=== PATIENT | female | born 1955 | race Hispanic/Latino ===

== ENCOUNTER 2023-05-29 00:36 | Emergency (ER) | payer MEDICARE ==
--- OUTSIDE RECORDS SUMMARY | 2023-05-29 00:39 | XMS REPORT | Continuity of Care Document ---
:1955 Author Organization [facility] t Address [address] [place] [address] Care Team Providers Name Role Phone [email or web address] Attending Clinician Unavailable [email or web address] Admitting Clinician Unavailable Problems This patient has no known problems. Allergies, Adverse Reactions, Alerts This patient has no known allergies or adverse reactions. Medications This patient has no known medications. Procedures This patient has no known procedures. Encounters Start End Encounter Admission Attending Care Care Encounter Source Date/Time Date/Time Type Type Clinicians Facility Department ID 2023-05-08 2023-05-08 Outpatient [email or web address] PRIV PRIV [id number] [facility] 00:00:00 00:00:00 man_M [id number] Medica l Results This patient has no known results.
[2023-05-29] MEDS ORDERED: predniSONE 20 MG TAB ONE (01:21)
[2023-05-29] MEDS ORDERED: HYDROCODONE/APAP 7.5/325 MG TAB ONE (01:21)
[2023-05-29] MEDS ORDERED: FAMOTIDINE 20 MG TAB ONE (01:22)
[2023-05-29] MEDS ORDERED: VALACYCLOVIR 500 MG TAB ONE (01:23)
--- NOTE | 2023-05-29 01:31 | EDPHYS ---
Physician Documentation [facility] Name: Osvaldo Rea Age: 68 yrs Sex: Female : 1955 Arrival Date: 05/29/2023 Time: 00:36 Bed 20 Private MD: ED Physician Luis Enrique Valdivia HPI: 05/29 01:06 This 68 yrs old Female presents to ER via Unassigned with complaints of Rash. snw 01:06 The patient's rash thought to be caused by vesicular rash x 2 days in cluster at right snw chest. The patient has not experienced similar symptoms in the past. Historical: - Allergies: 01:06 No Known Allergies; jb4 - Home Meds: 01:22 atorvastatin 80 mg oral tablet [Active]; metoprolol tartrate 25 mg Oral tablet jb4 [Active]; amlodipine 5 mg tablet [Active]; - PMHx: 01:06 high cholesterol; hypertension; jb4 - Immunization history:: Adult Immunizations up to date. - Social history:: Smoking status: Patient denies any tobacco usage or history of. ROS: 01:05 Constitutional: Negative for fever, chills, and weight loss, Eyes: Negative for injury, snw pain, redness, and discharge, ENT: Negative for injury, pain, and discharge, Neck: Negative for injury, pain, and swelling, Cardiovascular: Negative for chest pain, palpitations, and edema, Respiratory: Negative for shortness of breath, cough, wheezing, and pleuritic chest pain, Abdomen/GI: Negative for abdominal pain, nausea, vomiting, diarrhea, and constipation, Back: Negative for injury and pain, : Negative for injury, bleeding, discharge, and swelling, MS/Extremity: Negative for injury and deformity, Neuro: Negative for headache, weakness, numbness, tingling, and seizure, Psych: Negative for depression, anxiety, suicide ideation, homicidal ideation, and hallucinations. 01:05 Skin: Positive for rash. Exam: 01:03 Constitutional: This is a well developed, well nourished patient who is awake, alert, snw and in no acute distress. Head/Face: Normocephalic, atraumatic. Eyes: Pupils equal round and reactive to light, extra-ocular motions intact. Lids and lashes normal. Conjunctiva and sclera are non-icteric and not injected. Cornea within normal limits. Periorbital areas with no swelling, redness, or edema. ENT: Nares patent. No nasal discharge, no septal abnormalities noted. Tympanic membranes are normal and external auditory canals are clear. Oropharynx with no redness, swelling, or masses, exudates, or evidence of obstruction, uvula midline. Mucous membranes moist. Neck: Trachea midline, no thyromegaly or masses palpated, and no cervical lymphadenopathy. Supple, full range of motion without nuchal rigidity, or vertebral point tenderness. No Meningismus. Chest/axilla: Normal chest wall appearance and motion. Nontender with no deformity. Tender Vesicles to right flank Cardiovascular: Regular rate and rhythm with a normal S1 and S2. No gallops, murmurs, or rubs. Normal PMI, no JVD. No pulse deficits. Respiratory: Lungs have equal breath sounds bilaterally, clear to auscultation and percussion. No rales, rhonchi or wheezes noted. No increased work of breathing, no retractions or nasal flaring. Abdomen/GI: Soft, non-tender, with normal bowel sounds. No distension or tympany. No guarding or rebound. No evidence of tenderness throughout. Back: No spinal tenderness. No costovertebral tenderness. Full range of motion. MS/ Extremity: Pulses equal, no cyanosis. Neurovascular intact. Full, normal range of motion. Neuro: Awake and alert, GCS 15, oriented to person, place, time, and situation. Cranial nerves II-XII grossly intact. Motor strength 5/5 in all extremities. Sensory grossly intact. Cerebellar exam normal. Normal gait. Psych: Awake, alert, with orientation to person, place and time. Behavior, mood, and affect are within normal limits. 01:03 Skin: Appearance: normal except for affected area, zoster, on the right lateral anterior chest. Vital Signs: 01:05 BP 193 / 78; Pulse 70; Resp 18; Temp 97.5; Pulse Ox 100% on R/A; jb4 01:39 BP 162 / 72; jb4 MDM: 01:01 Patient medically screened. snw 01:02 Differential diagnosis: impetigo, allergic reaction, shingles. Data reviewed: vital snw signs, nurses notes. I considered the following discharge prescriptions or medication management in the emergency department Medications were administered in the Emergency Department. See MAR. Historians other than the Patient: Daughter/Son: Son. Counseling: I had a detailed discussion with the patient and/or guardian regarding: the historical points, exam findings, and any diagnostic results supporting the discharge/admit diagnosis, the presence of at least one elevated blood pressure reading (>120/80) during this emergency department visit, the need for outpatient follow up, for definitive care. Response to treatment: There is no appreciated change of the patient's symptoms at this time. Special discussion: Based on the history and exam findings, there is no indication for further emergent testing or inpatient evaluation. I discussed with the patient/guardian the need to see the primary care provider for further evaluation of the symptoms. 05/29 01:20 Order name: PO challenge; Complete Time: 01:21 snw Administered Medications: 01:20 Drug: Famotidine PO 20 mg Route: PO; jb4 01:21 Drug: Hydrocodone-Acetaminophen PO (7.5 mg-325 mg) 1 tabs Route: PO; jb4 01:21 Drug: valACYclovir PO 1000 mg Route: PO; jb4 01:21 Drug: predniSONE PO 40 mg Route: PO; jb4 Disposition: 08:03 Co-signature as Attending Physician, Luis Enrique Valdivia MD I agree with the assessment sp4 and plan of care. I reviewed the patient's care provided by the Advanced Practice Provider and agree with the diagnosis and treatment plan. Disposition Summary: 05/29/23 01:30 Discharge Ordered Location: Home snw Condition: Stable snw Diagnosis - Zoster without complications snw Followup: snw - With: Emergency Department - When: As needed - Reason: Worsening of condition Followup: snw - With: Private Physician - When: 1 week - Reason: Recheck today's complaints, Continuance of care, Re-evaluation by your physician Discharge Instructions: - Discharge Summary Sheet snw - Shinshwethaes snw Forms: - Medication Reconciliation Form snw - Thank You Letter snw - Antibiotic Education snw - Prescription Opioid Use snw - Patient Portal Instructions snw Prescriptions: - valacyclovir 1 gram Oral tablet - take 1 tablet by ORAL route 3 times per day for 7 days; 21 tablet; Refills: 0, snw Product Selection Permitted - Tramadol 50 mg Oral Tablet - take 1 tablet by ORAL route every 8 hours as needed; 12 tablet; Refills: 0, snw Product Selection Permitted - Prednisone 20 mg Oral Tablet - take 2 tablets by ORAL route once daily for 5 days; 10 tablet; Refills: 0, snw Product Selection Permitted - Pepcid 20 mg Oral Tablet - take 1 tablet by ORAL route once daily; 20 tablet; Refills: 0, Product snw Selection Permitted Signatures: Zoe Thompson, EUNICE-C SLATE ROOFER-Csnw Kj Woods RN RN jb4 Luis Enrique Valdivia MD MD sp4
--- NOTE | 2023-05-29 01:31 | ER ---
Nurse's Notes [facility] Name: Osvaldo Rea Age: 68 yrs Sex: Female : 1955 Arrival Date: 05/29/2023 Time: 00:36 Bed 20 Private MD: Diagnosis: Zoster without complications Presentation: 05/29 01:05 Chief complaint: Patient states: I have a rash on my right flank. Coronavirus screen: jb4 At this time, the client does not indicate any symptoms associated with coronavirus-19. Ebola Screen: No symptoms or risks identified at this time. Initial Sepsis Screen: Does the patient meet any 2 criteria? No. Patient's initial sepsis screen is negative. Does the patient have a suspected source of infection? No. Patient's initial sepsis screen is negative. Risk Assessment: Do you want to hurt yourself or someone else? Patient reports no desire to harm self or others. Onset of symptoms was May 29, 2023. Transition of care: patient was not received from another setting of care. 01:05 Method Of Arrival: Ambulatory jb4 01:05 Acuity: RACHEL 4 jb4 Historical: - Allergies: 01:06 No Known Allergies; jb4 - Home Meds: 01:22 atorvastatin 80 mg oral tablet [Active]; metoprolol tartrate 25 mg Oral tablet jb4 [Active]; amlodipine 5 mg tablet [Active]; - PMHx: 01:06 high cholesterol; hypertension; jb4 - Immunization history:: Adult Immunizations up to date. - Social history:: Smoking status: Patient denies any tobacco usage or history of. Screenin:39 [facility] ED Fall Risk Assessment (Adult) History of falling in the last 3 months, jb4 including since admission No falls in past 3 months (0 pts) Confusion or Disorientation No (0 pts) Score/Fall Risk Level 0 - 2 = Low Risk Oriented to surroundings, Maintained a safe environment. Abuse screen: Denies threats or abuse. Nutritional screening: No deficits noted. Tuberculosis screening: Assessment: 01:10 General: Appears in no apparent distress. comfortable, Behavior is calm, cooperative, jb4 appropriate for age. Pain: Complains of pain in Right flank Pain does not radiate. Pain currently is 8 out of 10 on a pain scale. Neuro: Level of Consciousness is awake, alert, obeys commands, Oriented to person, place, time, situation. Cardiovascular: Patient's skin is warm and dry. Respiratory: Airway is patent Respiratory effort is even, unlabored, Respiratory pattern is regular, symmetrical. GI: No signs and/or symptoms were reported involving the gastrointestinal system. : No signs and/or symptoms were reported regarding the genitourinary system. EENT: No signs and/or symptoms were reported regarding the EENT system. Derm: Skin is intact, Skin is pink, warm \T\ dry. Musculoskeletal: Circulation, motion, and sensation intact. Range of motion: intact in all extremities. Vital Signs: 01:05 BP 193 / 78; Pulse 70; Resp 18; Temp 97.5; Pulse Ox 100% on R/A; jb4 01:39 BP 162 / 72; jb4 ED Course: 00:46 Patient arrived in ED. ag3 00:47 Zoe Thompson FNP-C is [facility]. snw 00:47 Luis Enrique Valdivia MD is Attending Physician. snw 01:06 Triage completed. jb4 01:06 Arm band placed on right wrist. jb4 01:20 Kj Woods, RN is Primary Nurse. jb4 01:39 Patient has correct armband on for positive identification. Bed in low position. Call jb4 light in reach. Side rails up X 1. 01:39 No provider procedures requiring assistance completed. Patient did not have IV access jb4 during this emergency room visit. Administered Medications: 01:20 Drug: Famotidine PO 20 mg Route: PO; jb4 01:21 Drug: Hydrocodone-Acetaminophen PO (7.5 mg-325 mg) 1 tabs Route: PO; jb4 01:21 Drug: valACYclovir PO 1000 mg Route: PO; jb4 01:21 Drug: predniSONE PO 40 mg Route: PO; jb4 Outcome: 01:30 Discharge ordered by . snw 01:39 Discharged to home ambulatory. jb4 01:39 Condition: stable 01:39 Discharge instructions given to patient, Instructed on discharge instructions, follow up and referral plans. medication usage, Demonstrated understanding of instructions, follow-up care, medications, Prescriptions given X 4. 01:44 Patient left the ED. jb4 Signatures: Zoe Thompson FNP-C EXTENSION SERVICE SUPERVISOR-Csnw Kj Woods, RN RN jb4 Sonia Knight ag3 Corrections: (The following items were deleted from the chart) 01:40 01:39 Discharge instructions given to patient, Instructed on discharge instructions, jb4 follow up and referral plans. Demonstrated understanding of instructions, follow-up care, jb4
[2023-05-29 01:51] VITALS: TEMP 97.5; O2SAT 100
[2023-05-29 01:52] VITALS: BP 162/72
== END 2023-05-29 01:44 | disposition home or self-care (01) ==
LOC: ER 00:36
DX: B02.9 Zoster without complications (principal)
CPT/HCPCS: J7512